=== PATIENT | male | born 2000 | race Hispanic/Latino ===

== ENCOUNTER 2025-04-02 05:01 | Emergency (ER) | payer BC ==
[~2025-04-02] VITALS: Ht 182.9 cm; Wt 126.1 kg
--- NOTE | 2025-04-02 05:47 | ERN ---
ED Note History of Present Illness Stated Complaint: EYE SWELLING Chief Complaint: Eye Problems Time Seen by MD: 05:16 Dictation: This is a 24-year-old male who comes in with complaints of left eye swelling. It started around 1:30 a.m. and he he felt pressure in the left eye. He took Benadryl thinking he might have an allergic reaction and fell back asleep but when he woke up at 4:00 a.m. he continued to have the swelling and discomfort in the left eye hence he came into the ER for further evaluation. No fevers chills or rigors no stringy drainage from the eye no redness of the eye. No new pets at home. He has a history of sinus infections in the last antibiotic dosing was in August 2024 Temperature 97.8 pulse eighty respirations 18 blood pressure 124/78 with a pu lse oximetry of 99% on room air Allergies: Coded Allergies: NSAIDS (Non-Steroidal Anti-Inflamma (Unverified Allergy, Unknown, HIVES, 04/02/25) Past Medical History Past Medical History: Asthma Surgical History: None Family History: Negative Social History: Negative RN Note Reviewed/Agreed w/PFSH: Yes Review of System Dictation Constitutional: Negative for fever,chills, and weight loss Eyes: Negative for injury, left eye swelling pain,redness, and discharge ENT: Negative for injury,pain or swelling Cardiovascular: Negative for chest pain, palpitations, and edema Respiratory: Negative for shortness of breath, cough, and wheezing, Abdomen/GI: Negative for abdominal pain, nausea, vomiting, diarrhea, and constipation Back: Negative for injury and pain : Negative for injury, bleeding and discharge MS/Extremity: Negative for injury and deformity Skin: Negative for rash, and discoloration Neuro: Negative for headache, weakness, numbness, tingling, and seizure Psych: Negative for suicide ideation, homicidal ideation, and hallucinations Initial Vital Sign VS Vital Signs Date Time Temp Pulse Resp B/P (MAP) Pulse Ox O2 Delivery O2 Flow Rate FiO2 04/02/25 05:02 97.9 86 18 124/78 99 Room Air 0 04/02/25 05:21 21 Physical Exam Dictation General: awake, alert, NAD Head/Face: Normocephalic, atraumatic Eyes: PERRL, EOMI, vision at baseline left eyelid edema periorbital swelling no discoloration mild redness on the medial canthus I did not see any obvious lacrimal gland swelling. ENT: oral cavity clear, TMs clear, no signs of infection Neck: Trachea midline, supple, no nuchal rigidity Cardiovascular: RRR, normal S1/S2, No MRGs, no JVD Respiratory: CTAB, no respiratory distress, No rales or wheezes Abdomen: Soft, non-tender, non-distended, normal bowel sounds, no guarding or rebound. Skin: Warm, dry, normal turgor, no rash MS/Extremity: Pulses equal, no cyanosis, neurovascular intact, FROM Neuro: COAx4, GCS 15, strength 5/5, CN 2-12 intact, normal cerebellar exam, normal gait, Psych: Normal behavior, mood, and affect normal Extremities-trace edema without any palpable cords, Homans sign is negative Results (Laboratory/Radiology) Labs Reviewed?: Yes ED Course ED Course Orders Procedure Category Date Status Time Tobramycin PHA 04/02/25 In Process Sulf/Dexamethasone 06:00 Morphine 4mg Syg PHA 04/02/25 Complete (Morphine 4mg Syg) 06:00 Methylprednisolone PHA 04/02/25 Complete Succ 40mg (Solu-Medro 06:00 Current Medications Medications (Trade) Dose Ordered Sig/Keith Route PRN Reason Start Time Stop Time Status Last Admin Dose Admin Methylprednisolone Sodium Succinate (Solu-medROL 40MG) 40 mg ONCE ONCE IM 04/02/25 06:00 04/02/25 06:01 DC 04/02/25 05:52 Morphine Sulfate (morPHINE 4MG SYG) 4 mg ONCE ONCE IM 04/02/25 06:00 04/02/25 06:01 DC 04/02/25 05:52 Tobramycin/ Dexamethasone (TobraDEX EYE DROPS) 1 DROP ONCE OD 04/02/25 06:00 05/02/25 05:59 04/02/25 05:54 Vital Signs Date Time Temp Pulse Resp B/P (MAP) Pulse Ox O2 Delivery O2 Flow Rate FiO2 04/02/25 06:28 97.9 78 16 126/65 97 Room Air* 0 21 04/02/25 05:21 97.9 82 16 121/67 99 Room Air* 0 21 04/02/25 05:02 97.9 86 18 124/78 99 Room Air 0 We will administer medications according to the patient's complaint. Once the results are available, will review and personally interpreted the labs to rule out any acute life-threatening emergency the trach require immediate intervention and treatment. I will then re-evaluate the patient after treatment and diagnostic exams have return to determine whether the patient requires any further testing, can safely be discharged home or need further admission to hospital for additional treatment and evaluation. TobraDex eye drops and a dose of steroid. We will also give some pain medicine. 6:40 a.m. on re evaluation feeling better swelling appears to be slightly improved. We will discharge to home on TobraDex for 5 days. If no improvement over the next 24-48 hours we will consider a CT scan of the sinuses and maxillofacial area. Medical Decision Making MDM MDM: Differential diagnosis: Hordeolum, conjunctivitis, lacrimal duct infection, allergic reaction, unilateral angioedema Rationale: Tests considered and ordered secondary to shared decision making include: Previous outside records reviewed: Old ER visits. Risk of complication and/or morbidity or mortality of patient management: None Medications-Per medication reconciliation Need for hospitalization: Patient does not meet criteria for hospitalization. Need for emergency major/minor surgery: No There are no social concerns with this patient. Prescription drug management Prescriptions will include symptomatic care Patient's prior external medical records from other ER visits were reviewed by me as indicated. Prior testing and results from previous visits were reviewed. Prior tests were taken into account with medical decision making and resource utilization, independent historian/historians were used to obtain complete medical history. I independently interpreted the test that were performed, results were reviewed by me and considered findings on radiology if ordered. Medical management and examination interpretation discussions were had by me with other qualified healthcare professionals as indicated for the patient's care. Problem List Problem List: (1) Periorbital edema of left eye (2) Chronic sinusitis DX & DISP Disposition: Discharge Departure Impression: Primary Impression: Periorbital edema of left eye Additional Impression: History of chronic sinusitis Condition: Stable Scripts Amoxicillin/Potassium Clav (Augmentin Xr 1,000-62.5 Tab) 1,000 Mg-62.5 Mg Tab.er.12h 1 TAB PO BID for 10 Days, #20 TAB 0 Refills with food Prov: KOJO YOUNGBLOOD MD 04/02/25 Prednisone (Prednisone) 10 Mg Tablet 1 TAB PO DAILY for 7 Days, #7 TAB 0 Refills Prov: KOJO YOUNGBLOOD MD 04/02/25 Additional Instructions: Patient and the caregiver have been informed of all the diagnostic tests and the imaging conducted during the today's visit to the emergency room and has verbalized understanding of the results I have personally reviewed and interpreted all diagnostic exams performed here in the ER today as well as the vital signs documented by the nursing staff. The patient is now being discharged to home and should follow up with the primary care physician or the specialist as directed by the ER staff. Follow-up with primary care provider in 1 to 2 days. Take medications as directed here in the emergency room. Okay to continue home medications unless otherwise discussed during your visit in the emergency room today. Return to your nearest emergency room if symptoms worsen or if there is no improvement. Call 911 if you need immediate assistance. Take Tylenol or Motrin [id number] as needed and if no contraindications are present. Increase oral hydration. A wound culture or urine culture was ordered here in the emergency room department please follow-up with primary care provider and advise them to get repeat ports from our facility. If you had any Andres wrap/splints that were applied here, please do not remove them until you see your primary care or specialty. Referrals: NONE (PCP) KOJO YOUNGBLOOD MD Apr 02, 2025 05:47
[2025-04-02] MEDS: Solu-medROL 40MG VIAL IM ONE (05:52)
[2025-04-02] MEDS ORDERED: PRED10TA3 PO (06:43)
[2025-04-02] MEDS ORDERED: AMOX-427 PO (06:43)
[2025-04-02 06:52] VITALS: BP 126/65; PULSE 78; RESP 16; TEMP 97.9; O2SAT 97
== END 2025-04-02 06:56 | disposition home or self-care (01) ==
LOC: EDH 05:01
DX: H05.222 Edema of left orbit (principal); J45.909 Unspecified asthma, uncomplicated; Z88.6 Allergy status to analgesic agent
CPT/HCPCS: 99284; 96372 ×2; J2919; J2270